=== PATIENT | female | born 1990 | race Hispanic/Latino ===

== ENCOUNTER → 2022-07-21 | Outpatient (CLI) | payer SELFPAY ==
[~2022-07-21] MED LIST: IOHEXOL 350 MG/ML 100ML INFUS..BTL IV ONE; METOPROLOL TARTRATE 1 MG/ML 5ML VIAL IV ONE
== END | disposition home or self-care (01) ==
LOC: RAH 09:35
PROVIDERS: ATTEND Internal Medicine
DX: I51.7 Cardiomegaly (principal); I42.0 Dilated cardiomyopathy; I44.7 Left bundle-branch block, unspecified; J98.11 Atelectasis; M47.814 Spondylosis without myelopathy or radiculopathy, thoracic region
CPT/HCPCS: 75574; J3490; Q9967